=== PATIENT | male | born 1960 | race Caucasian/White ===

== ENCOUNTER 2016-11-04 08:00 | Day surgery (SDC) | payer MEDICAID, OTHER ==
[2016-11-04] VITALS (7 sets, daily range): BP systolic 119–140; BP diastolic 60–79; PULSE 62–68; RESP 12–20; TEMP 97.9–98.7; O2SAT 94–98
[~2016-11-04] VITALS: Ht 180.3 cm; Wt 76.8 kg
[~2016-11-04 08:00] MED LIST: HYDR-3516 PO; IBUP100S7 PO; MAGICADU2 SWISH-SWAL
[2016-11-04] MEDS ORDERED: OXYC1CAP PO (08:16)
[2016-11-04] MEDS ORDERED: POVIDONE IODINE 5% (ANTISEPSIS KIT) 4 APPLICATIONS EACH NARE SCH (09:15)
[2016-11-04] MEDS ORDERED: ceFAZolin 2 GM PREMIX 50 ML - implanted port/tunneled catheter insertion IV SCH (09:15)
[2016-11-04] MEDS ORDERED: VANCOMYCIN 1000 MG/NS 250 ML - implanted port/tunneled catheter IV SCH ×2 (09:15)
[2016-11-04] MEDS ORDERED: CHLORHEXIDINE GLUCONATE 2 % 1 PACK (2 CLOTHS) TOPICAL SCH (09:15)
[2016-11-04] MEDS ORDERED: SODIUM CHLORIDE 0.9% 1000 ML IV SCH (09:30)
[2016-11-04 09:37] LABS: AUTOMATED NEUTROPHIL # 2.8 TH/MM3 (1.8-7.7); BASOPHIL % 0.8 % (0.0-2.0); EOSINOPHIL # 0.1 TH/MM3 (0-0.4); EOSINOPHIL % 1.2 % (0.0-4.0); HEMATOCRIT 43.3 % (39.0-51.0); HEMO FLAGS DIFF FINAL; LYMPH % 38.3 % (9.0-44.0); LYMPHOCYTE # 2.2 TH/MM3 (1.0-4.8); MEAN CELL VOLUME 97.5 FL (80.0-100.0); MEAN CORPUSCULAR HEMOGLOBIN 33.5 PG (27.0-34.0); MEAN CORPUSCULAR HGB CONC 34.3 % (32.0-36.0); MONO % 10.7 % (0.0-8.0); PLATELET COUNT 337 TH/MM3 (150-450); RED BLOOD COUNT 4.44 MIL/MM3 (4.50-5.90); RED CELL DISTRIBUTION WIDTH 13.4 % (11.6-17.2); WHITE BLOOD COUNT 5.6 TH/MM3 (4.0-11.0)
[2016-11-04 09:42] LABS: APTT (PATIENT) 31.7 SEC (24.3-30.1); INTERNATIONAL NORMALIZED RATIO 1.2 RATIO; PROTHROMBIN TIME - PATIENT 13.5 SEC (9.8-11.6)
[2016-11-04] MEDS ORDERED: MIDAZOLAM HCL 5 MG/5 ML VIAL ONE (09:57)
[2016-11-04] MEDS ORDERED: fentaNYL CITRATE 250 MCG/5 ML AMP ONE (09:57)
[2016-11-04] MEDS ORDERED: GLUCAGON 1 MG/ML VIAL ONE (09:59)
[2016-11-04] MEDS ORDERED: LIDOCAINE 1%/EPINEPHrine 1:100,000 SOLN 20 ML VIAL ONE (10:21)
--- NOTE | 2016-11-04 11:26 | RADRPT ---
EXAM DATE/TIME: 11/04/2016 10:34 [facility] COMPARISON: No previous studies available for comparison. INDICATIONS : Patient with a history of squamous cell carcinoma of left tonsil with involvement of posterior pharyn x. 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 SURGICAL HISTORY : Laryngoscopy with biopsy of left oropharynx ENCOUNTER: Initial ACUITY: 2 months PAIN SCORE: 7/10 LOCATION: neck FLUORO TIME: 1.9 minutes SEDATION TIME: 45 minutes ACCESS: Right internal jugular vein SEDATION: 1.) 4 mg midazolam (Versed) IV 2.) 200 mcg fentanyl (Sublimaze) IV Prophylactic antibiotics were administered with appropriate pre-procedure timing. Vancomycin within 2 hours of procedure, Ancef (or alternative) within 1 hour of procedure. DEVICE: 1. 8 German single lumen Bard Power Port PROCEDURE : 1. Continuous pulse oximetry and EKG monitoring. 2. Intravenous conscious sedation. 3. Ultrasound guidance for venous access. 4. Fluoroscopic guided implantable central venous port placement. The patient was placed supine. The neck was prepped in sterile fashion. Full sterile technique was u sed, including cap, mask, sterile gloves and gown, and a large sterile sheet. Hand hygiene and 2% ch lorhexidine Betadine was utilized per protocol for cutaneous antisepsis with appropriate dry time for site. The skin and subcutaneous tissues were infiltrated with local anesthetic solution. Under direct ultrasound guidance, central venous access was accomplished in the targeted vessel. The ultrasound images depicting access guidance were stored and saved to PACS for permanent record. A s ubcutaneous pocket was created using blunt dissection. The port was introduced to the pocket. The c atheter tubing was fed through a subcutaneous tunnel to the venotomy site. The catheter tubing was c ut to a suitable length and then was introduced through a valved Peel-Away sheath and positioned with catheter tubing tip at the cavo-atrial junction level. The pocket incision was closed with subcutic ular Vicryl suture. Steri-Strips were applied. The port was flushed and locked with heparin solutio n per protocol. Sterile dressing was applied to the site. The patient tolerated the procedure well. Conscious sedation was performed with the prescribed dosages and duration as above. The patient pedro pablo ated the procedure well and there were no complications. EKG and oximetry remained stable throughout the procedure. The patient was sent to post anesthesia recovery in stable condition. CONCLUSION: Uncomplicated ultrasound and fluoroscopic guided implanted central venous port catheter placement as described in detail above. An 8 German Power port was placed. David Iyer MD on November 04, 2016 at 11:25 Board Certified Radiologist. This report was verified electronically.
[2016-11-04] MEDS ORDERED: IOHEXOL 350 MG/ML 50 ML BTL (for RAD DIAG) G-TUBE ONE (11:28)
--- NOTE | 2016-11-04 11:49 | RADRPT ---
EXAM DATE/TIME: 11/04/2016 10:34 [facility] COMPARISON: No previous studies available for comparison. INDICATIONS : Patient with a history of squamous cell carcinoma of left tonsil with involvement of posterior pharyn x. 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 SURGICAL HISTORY : Laryngoscopy with biopsy of left oropharynx. ENCOUNTER: Initial ACUITY: 2 months PAIN SCORE: 7/10 LOCATION: neck FLUORO TIME: 1.9 minutes SEDATION TIME: 45 minutes CONTRAST: 10 cc Omnipaque (iohexol) 350 MEDICATION(S): 1.) 4 mg midazolam (Versed) IV 2.) 200 mcg Fentanyl (Sublimaze) IV Prophylactic antibiotics were administered with appropriate pre-procedure timing. DEVICE(S): 1.) 18 Fr gastrostomy tube PROCEDURE : 1. Limited abdominal ultrasound. 2. Fluoroscopically guided gastrostomy tube placement. 3. Conscious sedation with continuous EKG and oximetry monitoring. The risks, benefits and alternatives to the procedure were explained and verbal and written consent w as obtained. The site was prepped in sterile fashion. Full sterile technique was used, including ca p, mask, sterile gloves and gown and a large sterile sheet. Hand hygiene and 2% chlorhexidine and/or betadine/alcohol prep was utilized per protocol for cutaneous antisepsis. The skin and subcutaneous tissues were infiltrated with local anesthetic solution. Ultrasound was used to carlos alberto the position of the liver. The stomach was insufflated with room air. Th ree percutaneous fasteners were placed to secure the anterior gastric wall. A small incision was made between the fasteners. The stomach was accessed with an 18 gauge needle. A n 0.035 wire was advanced into the small bowel. The tract was dilated. The gastrostomy tube was int roduced through a peel-away sheath. The position was confirmed with an injection of contrast. Conscious sedation was performed with the prescribed dosages and duration as above. The patient pedro pablo ated the procedure well and there were no complications. EKG and oximetry remained stable throughout the procedure. The patient was sent to post anesthesia recovery in stable condition. CONCLUSION: Uncomplicated gastrostomy tube placement as above. David Iyer MD on November 04, 2016 at 11:47 Board Certified Radiologist. This report was verified electronically.
--- NOTE | 2016-11-04 12:08 | PD.RAD ---
Post Procedure Progress Note Pre Procedure Diagnosis: (1) Squamous cell carcinoma of tonsil Post Procedure Diagnosis: (1) Squamous cell carcinoma of tonsil Procedure Date: Nov 04, 2016 Supervising Radiologist: David Iyer Proceduralist/Assist: Bri Lewis RT(R)(), Moses Carrizales RT(R) Anesthesia: Conscious Sedation Plan of Activity Patient to Unit: [facility] Patient Condition: Good See PACS Report for procedural detail/treatment Feeding Tube Gastrostomy Placement Central Venous Access Device Procedure 1 Right Internal Jugular Infusaport Placement dual lumen David Iyer MD Nov 04, 2016 12:08
[2016-11-04] MEDS ORDERED: SODIUM CHLORIDE 0.9% FLUSH 5 ML FLUSH IVF PRN (12:15)
[2016-11-04] MEDS ORDERED: MORPHINE SULFATE 4 MG/ML INJ IV ONE (13:00)
[2016-11-04] MEDS ORDERED: MORPHINE SULFATE 4 MG/ML INJ IV PRN (13:10)
== END 2016-11-04 14:15 | disposition home or self-care (01) ==
LOC: HROP 08:00 → HRIP 08:01 → HROP 14:15
PROVIDERS: ATTEND Specialist
DX: Z45.2 Encounter for adjustment and management of vascular access device (principal); C09.9 Malignant neoplasm of tonsil, unspecified; Z79.01 Long term (current) use of anticoagulants
CPT/HCPCS: 36561; 49440; 76937; 76942; 77001; 85025; 85610; 85730; 99152; 99153; C1769; C1788; C1887; J0690; J1610; J1642; J2250; J2270; J3010; J3370; J7030; J7050; Q9967

== ENCOUNTER 2017-02-14 10:30 | Day surgery (SDC) | payer OTHER ==
[~2017-02-14 10:30] MED LIST changes: -HYDR-3516 PO; -IBUP100S7 PO; -MAGICADU2 SWISH-SWAL; +OXYC1CAP PO
[2017-02-14 10:47] VITALS: BP 116/78; PULSE 52; RESP 20; TEMP 98.3; O2SAT 93
== END 2017-02-14 11:00 | disposition home or self-care (01) ==
LOC: HROP 10:30 → HRIP 10:30 → HROP 11:00
PROVIDERS: ATTEND Internal Medicine Hematology & Oncology
DX: Z46.89 Encounter for fitting and adjustment of other specified devices (principal)
CPT/HCPCS: 99211; G0463

== ENCOUNTER 2017-05-19 10:21 | Day surgery (SDC) | payer OTHER ==
[~2017-05-19] VITALS: Ht 180.3 cm; Wt 67.3 kg
[2017-05-19 10:42] VITALS: BP 116/83; PULSE 56; RESP 20; TEMP 97.7; O2SAT 97
[2017-05-19] MEDS ORDERED: SODIUM CHLOR 0.9% 1000 ML IV SCH (11:00)
[2017-05-19] MEDS ORDERED: SODIUM CHLORIDE 0.9% FLUSH 10 ML FLUSH IV FLUSH PRN (11:00)
[2017-05-19 11:16] LABS: AUTOMATED NEUTROPHIL # 1.6 TH/MM3 (1.8-7.7); BASOPHIL % 0.6 % (0.0-2.0); EOSINOPHIL % 1.4 % (0.0-4.0); HEMATOCRIT 39.9 % (39.0-51.0); HEMO FLAGS DIFF FINAL; LYMPH % 28.4 % (9.0-44.0); LYMPHOCYTE # 0.8 TH/MM3 (1.0-4.8); MEAN CELL VOLUME 100.4 FL (80.0-100.0); MEAN CORPUSCULAR HEMOGLOBIN 34.3 PG (27.0-34.0); MEAN CORPUSCULAR HGB CONC 34.1 % (32.0-36.0); MONO % 14.2 % (0.0-8.0); NEUT % 55.4 % (16.0-70.0); PLATELET COUNT 260 TH/MM3 (150-450); RED BLOOD COUNT 3.98 MIL/MM3 (4.50-5.90); RED CELL DISTRIBUTION WIDTH 12.7 % (11.6-17.2); WHITE BLOOD COUNT 2.8 TH/MM3 (4.0-11.0)
[2017-05-19 11:22] LABS: APTT (PATIENT) 42.5 SEC (24.3-30.1); INTERNATIONAL NORMALIZED RATIO 1.2 RATIO; PROTHROMBIN TIME - PATIENT 13.2 SEC (9.8-11.6)
[2017-05-19] MEDS ORDERED: LIDOCAINE 1%/EPINEPHrine 1:100,000 SOLN 20 ML VIAL ONE (12:44)
[2017-05-19] MEDS ORDERED: MIDAZOLAM HCL 2 MG/2 ML VIAL ONE (12:59)
[2017-05-19] MEDS ORDERED: fentaNYL CITRATE 250 MCG/5 ML AMP ONE (13:00)
--- NOTE | 2017-05-19 13:53 | PD.RAD ---
Post CT Procedure Prog Note Pre Procedure Diagnosis: (1) Squamous cell carcinoma of tonsil (2) Bone lesion Post Procedure Diagnosis: (1) Bone lesion (2) Squamous cell carcinoma of tonsil Procedure Date: May 19, 2017 Supervising Radiologist: Sam Schrader Estimated blood loss: minimal Anesthesia: Conscious Sedation Plan of Activity Patient to Unit: [facility] Patient Condition: Good See PACS Report for procedural detail/treatment Biopsy Imaging Guidance: CT Side: Left Biopsy Procedure: Bone Site: left iliac bone lytic lesion Specimen: Core Biopsy Plan to [facility] then discharge home in 2 hours. Sam Schrader MD May 19, 2017 13:53
[2017-05-19 14:10] VITALS: BP 104/57; PULSE 57; RESP 18; TEMP 97.9; O2SAT 93
[2017-05-19 14:25] VITALS: BP 95/60; PULSE 52; RESP 18; O2SAT 93
[2017-05-19 14:55] VITALS: BP 107/60; PULSE 60; RESP 18; O2SAT 96
[2017-05-19 15:25] VITALS: BP 121/71; PULSE 56; RESP 18; O2SAT 96
--- NOTE | 2017-05-19 16:22 | RADRPT ---
EXAM DATE/TIME: 05/19/2017 13:03 [facility] COMPARISON: No previous studies available for comparison. Correlated with outside MRI and CT exam. INDICATIONS : Left iliac bone lesion. SEDATION TIME: 45 minutes BIOPSY SITE: Left iliac MEDICATION(S): 1.) 3 mg midazolam (Versed) IV 2.) 200 mcg fentanyl (Sublimaze) IV DEVICE(S): 1.) 12 gauge Bone biopsy needle 2.) MEDICAL HISTORY : Head and neck cancer SURGICAL HISTORY : None. ENCOUNTER: Initial ACUITY: 1 day PAIN SCORE: 0/10 LOCATION: Left pelvis A total of one core specimen(s) were obtained and sent to the laboratory for pathologic evaluation. PROCEDURE: 1. CT guided bone deep biopsy. 2. Conscious sedation with continuous EKG and oximetry monitoring. Prior to the procedure informed consent was obtained. Any appropriate prior imaging studies were rev iewed. Using automated exposure control and adjustment of the mA and/or kV according to patient size, radiat ion dose was kept as low as reasonably achievable to obtain optimal diagnostic quality images. DICOM format image data is available electronically for review and comparison. The site was prepped in a sterile fashion. Full sterile technique was used, including cap, mask, fransisco rile gloves and gown and a large sterile sheet. Hand hygiene and 2% chlorhexidine and/or betadine/al cohol prep was utilized per protocol for cutaneous antisepsis. The skin and subcutaneous tissues wer e infiltrated with local anesthetic solution. With CT guidance the small lytic lesion in the left iliac bone was localized. Biopsy was performed us ing the prescribed needle as above. Adequate hemostasis was obtained with compression at the punctur e site. Follow-up CT scan reveals no hemorrhage or acute abnormality. The patient tolerated the procedure well and there were no complications. The patient was returned to the Radiology Outpatient Unit in stable condition. CONCLUSION: Uncomplicated CT guided biopsy of the left iliac bone lytic lesion. Sam Schrader MD on May 19, 2017 at 16:20 Board Certified Radiologist. This report was verified electronically.
== END 2017-05-19 15:38 | disposition home or self-care (01) ==
LOC: HRIP 10:21 → HRAD 10:21
PROVIDERS: ATTEND Specialist
DX: C09.1 Malignant neoplasm of tonsillar pillar (anterior) (posterior) (principal); M89.9 Disorder of bone, unspecified
CPT/HCPCS: 20220; 77012; 85025; 85610; 85730; 88307; 88311; 99152; 99153; J1642; J2250; J3010; J7030; 20225; 88305

== ENCOUNTER 2017-08-29 06:45 | Day surgery (SDC) | payer OTHER ==
[~2017-08-29] VITALS: Ht 180.3 cm; Wt 67.3 kg
[2017-08-29 07:01] VITALS: BP 125/70; PULSE 68; RESP 20; TEMP 97.9; O2SAT 91
[2017-08-29] MEDS ORDERED: SODIUM CHLOR 0.9% 1000 ML INJ 1,000 ML IV SCH (07:15)
[2017-08-29 08:00] LABS: AUTOMATED NEUTROPHIL # 2.2 TH/MM3 (1.8-7.7); BASOPHIL % 0.5 % (0.0-2.0); EOSINOPHIL % 1.1 % (0.0-4.0); HEMATOCRIT 40.7 % (39.0-51.0); HEMO FLAGS DIFF FINAL; LYMPH % 22.5 % (9.0-44.0); LYMPHOCYTE # 0.8 TH/MM3 (1.0-4.8); MEAN CELL VOLUME 99.2 FL (80.0-100.0); MEAN CORPUSCULAR HEMOGLOBIN 34.8 PG (27.0-34.0); MEAN CORPUSCULAR HGB CONC 35.1 % (32.0-36.0); MONO % 11.5 % (0.0-8.0); NEUT % 64.4 % (16.0-70.0); PLATELET COUNT 290 TH/MM3 (150-450); RED CELL DISTRIBUTION WIDTH 13.5 % (11.6-17.2); WHITE BLOOD COUNT 3.4 TH/MM3 (4.0-11.0)
[2017-08-29 08:14] LABS: INTERNATIONAL NORMALIZED RATIO 1.2 RATIO; PROTHROMBIN TIME - PATIENT 13.4 SEC (9.8-11.6)
[2017-08-29] MEDS ORDERED: SODIUM CHLORIDE 0.9% FLUSH 10 ML FLUSH IV FLUSH PRN (08:30)
[2017-08-29] MEDS ORDERED: LIDOCAINE 1%/EPINEPHrine 1:100,000 SOLN 20 ML VIAL ONE (09:24)
[2017-08-29] MEDS ORDERED: MIDAZOLAM HCL 2 MG/2 ML VIAL ONE (10:01)
--- NOTE | 2017-08-29 10:27 | PD.RAD ---
Post CT Procedure Prog Note Pre Procedure Diagnosis: (1) Squamous cell carcinoma of tonsil (2) Bone lesion Post Procedure Diagnosis: (1) Squamous cell carcinoma of tonsil (2) Bone lesion Procedure Date: Aug 29, 2017 Supervising Radiologist: Glen Zavaleta JR Anesthesia: Conscious Sedation Plan of Activity Patient to Unit: [facility] Patient Condition: Good See PACS Report for procedural detail/treatment Biopsy Imaging Guidance: CT Side: Left Biopsy Procedure: Bone Specimen: Core Biopsy Findings: 5 core samples of left iliac wing lytic lesion. Jr. Waqar,Glen Bo MD Aug 29, 2017 10:27
[2017-08-29 10:45] VITALS: BP 80/48; PULSE 67; RESP 18; TEMP 97.5; O2SAT 90
[2017-08-29 11:00] VITALS: BP 94/56; PULSE 60; RESP 18; O2SAT 94
--- NOTE | 2017-08-29 11:05 | RADRPT ---
EXAM DATE/TIME: 08/29/2017 10:05 [facility] COMPARISON: No previous studies available for comparison. INDICATIONS : Left iliac wing mass. Head and neck cancer. SEDATION TIME: 30 minutes BIOPSY SITE: Left MEDICATION(S): 1.) 3 mg midazolam (Versed) IV 2.) 150 mcg fentanyl (Sublimaze) IV DEVICE(S): 1.) 18 gauge Temno core biopsy needle MEDICAL HISTORY : Head and neck cancer. SURGICAL HISTORY : None. ENCOUNTER: Initial ACUITY: 1 day PAIN SCORE: 0/10 LOCATION: Left iliac wing A total of five core specimen(s) were obtained and sent to the laboratory for pathologic evaluation. PROCEDURE: 1. CT guided bone biopsy. 2. Conscious sedation with continuous EKG and oximetry monitoring. 3. EKG and oximetry remained stable throughout the procedure. Prior to the procedure informed consent was obtained. Any appropriate prior imaging studies were rev iewed. Using automated exposure control and adjustment of the mA and/or kV according to patient size, radiat ion dose was kept as low as reasonably achievable to obtain optimal diagnostic quality images. DICOM format image data is available electronically for review and comparison. The site was prepped in a sterile fashion. Full sterile technique was used, including cap, mask, fransisco rile gloves and gown and a large sterile sheet. Hand hygiene and 2% chlorhexidine and/or betadine/al cohol prep was utilized per protocol for cutaneous antisepsis. The skin and subcutaneous tissues wer e infiltrated with local anesthetic solution. With CT guidance the left iliac wing lytic lesion was localized. Biopsy was performed using the presc ribed needle as above. Adequate hemostasis was obtained with compression at the puncture site. The patient tolerated the procedure well and there were no complications. The patient was returned to the Radiology Outpatient Unit in stable condition. CONCLUSION: Uncomplicated CT guided core biopsy of a left iliac wing lytic lesion. Glen Zavaleta Jr., MD on August 29, 2017 at 11:02 Board Certified Radiologist. This report was verified electronically.
[2017-08-29 12:00] VITALS: BP 82/51; PULSE 54; RESP 18; O2SAT 94
[2017-08-29 12:30] VITALS: BP 101/69; PULSE 65; RESP 18; O2SAT 92
== END 2017-08-29 12:55 | disposition home or self-care (01) ==
LOC: HRAD 06:45 → HRIP 06:49 → HRAD 12:55
PROVIDERS: ATTEND Internal Medicine Hematology & Oncology
DX: M85.9 Disorder of bone density and structure, unspecified (principal); C09.1 Malignant neoplasm of tonsillar pillar (anterior) (posterior)
CPT/HCPCS: 20220; 77012; 85025; 85610; 85730; 88307; 88341; 88342; 99152; 99153; J2250; J3010; J7030; 88305